=== PATIENT | female | born 1975 | race Caucasian/White ===

== ENCOUNTER 2019-03-16 12:49 | Emergency (ER) | payer OTHER, MEDICAID, SELFPAY ==
[2019-03-16 13:02] VITALS: BMI 21.5
[2019-03-16 13:14] VITALS: BP 121/85; PULSE 79; RESP 16; TEMP 36.3; O2SAT 100
--- NOTE | 2019-03-16 13:27 | ED.URI ---
HPI - URI/Sore Throat <Isidra Parker PA-C - Last Filed: 03/16/19 20:37> General Chief Complaint: Upper Respiratory Symptoms Stated Complaint: Hard to swallow, needs thyroid meds Time Seen by Provider: 03/16/19 13:08 Source: patient Mode of arrival: ambulatory Limitations: no limitations History of Present Illness HPI Narrative: This 43-year-old female comes in due to concern for a number of ongoing issues, mainly wanting to have her swollen glands checked in her neck. She states that she is supposed to be on thyroid medication but has been off of this for close to 2 years. She states that she has had intermittent swollen glands in her neck and at times hard to swallow. She also states that she has had these for a long time, thinks maybe she has had some intermittent respiratory infections with congestion, ear pressure and gradual hearing loss on the right, occasional cough. She states that occasionally her chest will feel tight, does not currently. She does not have cough or wheeze. She has not been having fevers. She states that she does have allergies as well and thinks her symptoms may be due to this. She states she has ongoing anxiety, fatigue, cold intolerance and has had intermittent constipation. She states she has also had some intermittent swelling in her feet and ankles but does not have any today. Denies any pain in the lower extremities. She denies any chest pain or other acute complaints. Only other complaint is ongoing swelling and pain in her right hand especially 5th finger for which she has a referral to Ortho due to previous injury, no acute changes. She states that she is mainly here due to concern about her swollen glands Related Data Allergies Allergy/AdvReac Type Severity Reaction Status Date / Time codeine Allergy Verified 03/16/19 13:02 hydrocodone Allergy Verified 03/16/19 13:02 Review of Systems <Isidra Parker PA-C - Last Filed: 03/16/19 20:37> Review of Systems ROS Unobtainable: All systems reviewed & are unremarkable except as noted in HPI and below PFSH <Isidra Parker PA-C - Last Filed: 03/16/19 20:37> Medical History (Updated 03/16/19 @ 14:11 by Isidra Parker PA-C) History of methamphetamine use (Chronic) Panic attacks (Chronic) Hypothyroidism (Chronic) Seasonal allergies (Chronic) Surgical History (Updated 03/16/19 @ 14:11 by Isidra Parker PA-C) Status post appendectomy (Resolved) Status post knee surgery (Resolved) Status post partial thyroidectomy (Resolved) Comment: Current smoker, occasional methamphetamine use Exam <Isidra Parker PA-C - Last Filed: 03/16/19 20:37> Narrative Exam Narrative: GENERAL APPEARANCE: Patient sitting comfortably, in no distress. HEAD: No sinus TTP. EYES: PERRL, EOMI. EARS: Normal auditory canals, TMS intact dull light reflexes, somewhat fibrotic appearing ORAL CAVITY: Normal oropharynx. THROAT: PND noted, no erythema or exudate NECK/THYROID: Neck supple, full range of motion, shotty anterior cervical nodes, symmetric submandibular nodes, small posterior cervical nodes, nontender. No supraclavicular nodes. No palpable thyroid nodule. Trachea midline with normal swallow LUNGS: Clear to auscultation bilaterally, no cough on exam. HEART: RRR without murmur, nl S1, S2, no S3 or S4. EXTREMITIES: No lower extremity edema Initial Vital Signs Initial Vital Signs: Vital Signs Temperature 97.4 F L 03/16/19 13:14 Pulse Rate 79 03/16/19 13:14 Respiratory Rate 16 03/16/19 13:14 Blood Pressure 121/85 03/16/19 13:14 Pulse Oximetry 100 03/16/19 13:14 <Almas Landaverde DO - Last Filed: 03/18/19 08:14> Initial Vital Signs Initial Vital Signs: Vital Signs Temperature 97.4 F L 03/16/19 13:14 Pulse Rate 79 03/16/19 13:14 Respiratory Rate 16 03/16/19 13:14 Blood Pressure 121/85 03/16/19 13:14 Pulse Oximetry 100 03/16/19 13:14 Course <Isidra Parker PA-C - Last Filed: 03/16/19 20:37> Vital Signs - 8 hr 03/16/19 13:14 03/16/19 14:06 Temperature 97.4 F L Pulse Rate 79 72 Respiratory Rate 16 18 Blood Pressure [Right Arm] 121/85 113/84 Pulse Oximetry 100 100 <DO Heidy Wilde Last Filed: 03/18/19 08:14> Vital Signs - 8 hr 03/16/19 13:14 03/16/19 14:06 Temperature 97.4 F L Pulse Rate 79 72 Respiratory Rate 16 18 Blood Pressure [Right Arm] 121/85 113/84 Pulse Oximetry 100 100 Discharge Plan Departure Patient Disposition: Home Clinical Impression: Seasonal allergies Hypothyroidism Qualifiers: Hypothyroidism type: unspecified Qualified Code(s): E03.9 - Hypothyroidism, unspecified Discharge Date/Time: 03/16/19 14:16 Interventions: ED Discharge Assessment Last Done: 03/16/19 14:16 Instructions: Allergic Rhinitis, DI for Hypothyroidism Activity Restrictions/Additional Instructions: I think that at least some of your symptoms are due to allergies affecting your sinuses, ears and nose. Please try taking Zyrtec (cetirizine) 10 mg once daily to help with the drainage, and add pseudoephedrine during the day to help with your congestion in your ears and nose. I agree with you, you do likely need to restart on thyroid medicine, and you need to see primary care provider to review all of your other ongoing issues including your intermittent swollen glands and leg swelling, however I do not think you need any emergency treatment for these today. You will want to see somebody you can follow up with regularly and get lab testing and other studies such as ultrasound of your thyroid cyst as needed. I suspect that you will feel better when you have been back on your thyroid medicine for a while. Please call your old clinic tomorrow as you have planned to set up an appointment as soon as possible, and if you cannot be seen there for some reason, please call the [facility] that you were given the number for earlier so they can help you. Please return to the closest emergency department if you have acutely worsening symptoms, i.e. high fever, inability to swallow or difficulty breathing <Almas Landaverde DO - Last Filed: 03/18/19 08:14> Cosign ED Attending May Attestation: I was immediately available in the department for consultation. Documentation has been reviewed. I agree with assessment and plan.
--- NOTE | 2019-03-16 13:32 | PC.NURSE ---
Pt states she has a history of drug abuse, but was clean until 5 days ago. Pt states she used methamphetamines once about 5 days ago
[2019-03-16 14:06] VITALS: BP 113/84; PULSE 72; RESP 18; O2SAT 100
== END 2019-03-16 14:16 | disposition home or self-care (01) ==
PROVIDERS: Emergency Provider Internal Medicine
DX: E03.9 Hypothyroidism, unspecified (principal)
CPT/HCPCS: 99282; 99283